=== PATIENT | female | born 1960 | race Caucasian/White ===

== ENCOUNTER 2022-03-19 07:30 | Emergency (ER) | payer OTHER ==
[2022-03-19] MEDS ORDERED: NORCO 5/3251 EACH PO (08:54)
== END 2022-03-19 09:50 | disposition home or self-care (01) ==
LOC: FER 07:30
DX: S52.612A Displaced fracture of left ulna styloid process, initial encounter for closed fracture (principal); S52.572A Other intraarticular fracture of lower end of left radius, initial encounter for closed fracture; W19.XXXA Unspecified fall, initial encounter; Y93.01 Activity, walking, marching and hiking; Y92.009 Unspecified place in unspecified non-institutional (private) residence as the place of occurrence of the external cause
CPT/HCPCS: 73110

== ENCOUNTER → 2022-03-25 | Day surgery (SDC) | payer OTHER ==
[~2022-03-25] VITALS: Ht 157.5 cm; Wt 58.2 kg
[~2022-03-25] MED LIST: NORCO 5/3251 EACH PO; PERCOCET 5-3251 EACH PO
== END | disposition home or self-care (01) ==
LOC: FAS 06:12
DX: S52.552A Other extraarticular fracture of lower end of left radius, initial encounter for closed fracture (principal); X58.XXXA Exposure to other specified factors, initial encounter
CPT/HCPCS: 73100; 76000; C1713; J0690; J1100; J1885; J2250; J2405; J2795; J7120